=== PATIENT | female | born 1930 | race Caucasian/White ===

== ENCOUNTER 2016-12-09 11:28 | Inpatient (IN) | payer MEDICARE, BC ==
--- NOTE | ~2016-12-09 | DS ---
Discharge Summary [facility] [address] [place]. [address] NAME: BARBI PLASENCIA : [birth year] STATUS : DIS IN PAT#: [id number] AGE: 86 ADM/REG DATE : 12/09/16 MR#: [id number] REPORT SERV DATE: 12/20/16 DICTATED BY: SHIVA PALMA DATE: 12/19/16 REPORT STATUS : Draft TRANSCRIBED BY: REGINA DATE: 12/19/16 ADMISSION DATE: 12/09/2016 DISCHARGE DATE: 12/19/2016 CONSULTATIONS: 1. Cardiology, Phil Chou M.D. 2. Infectious Disease, Wilmer Triana M.D. 3. Nephrology, Dr. Rosario. INVASIVE PROCEDURE: None. DISCHARGE DIAGNOSES: 1. Severe sepsis, blood culture positive for Escherichia coli and Enterococcus faecalis. 2. Urinary tract infection. Urine culture positive for Escherichia coli, barber-sensitive. 3. Acute cholecystitis. 4. Acute kidney injury on chronic kidney disease. 5. History of coronary artery disease, status post AICD. 6. History of ischemic cardiomyopathy. 7. History of squamous cell carcinoma. 8. Fixed drug eruption likely due to Zosyn and vancomycin. 9. History of left ventricular thrombus, on chronic anticoagulation with warfarin. 10.History of degenerative joint disease, multiple sites, including bilateral knees and bilateral hips. 11.Elevated troponin secondary to demand ischemia. DISCHARGE CONDITION: Stable. HISTORY OF PRESENT ILLNESS: For detailed HPI, please make reference to Dr. Vanessa Shields's dictation on 12/10/2016. In brief, this is an 86-year-old female with medical history of coronary artery disease, ischemic cardiomyopathy, status post AICD placement, left ventricular thrombus, on chronic anticoagulation with warfarin, who presented to the emergency room with complaints of disorientation and confusion. In the ER, she was found to have a blood pressure in the low 60s and 40s. LABORATORY DATA: Significant for WBC of 23,000; lactic acid of 5.9; INR of 4.7; troponin elevated at 0.13; bilirubin elevated at 4.5. Chest x-ray showed decreased lung volume with mild central venous congestion. CT scan of the abdomen showed probable early evidence of cholecystitis. An assessment of septic shock secondary to urinary tract infection versus cholecystitis was made in the ER. The patient was started on aggressive IV fluid resuscitation. Broad-spectrum antibiotics with IV Zosyn, vancomycin, and Rocephin were initiated in the ER. General Surgery was consulted; however, given patient's poor prognosis and being deemed a nonsurgical candidate, General Surgery recommended conservative management of the acute cholecystitis. Initially, the patient's prognosis was very grim. Patient was made DNR/DNI by the family. The AICD was turned off. The patient's family requested the patient to be made comfort care, but to continue all treatments. The patient's AICD was turned off. The patient was continued on IV fluid resuscitation with Discharge Summary [place] [id number] [facility] [place]. [address] NAME: BARBI PLASENCIA : [birth year] STATUS : DIS IN PAT#: [id number] AGE: 86 ADM/REG DATE : 12/09/16 MR#: [id number] REPORT SERV DATE: 12/20/16 DICTATED BY: SHIVA PALMA DATE: 12/19/16 REPORT STATUS : Draft TRANSCRIBED BY: REGINA DATE: 12/19/16 broad-spectrum antibiotics. Based on dramatic improvement, the patient's WBC gradually trended down. The patient's blood pressure remained improved and remained stable with aggressive IV fluid resuscitation and broad-spectrum antibiotics. However, the patient's creatinine was noted to be significantly elevated. Nephrology was consulted, recommended to continue IV fluid resuscitation. The patient's creatinine gradually improved from 3.99. At the time of discharge, the patient's creatinine had returned back to baseline of 1.2. Also, during the course of this admission, the patient developed a significant reaction to vancomycin and Zosyn. The patient was noted to have multiple blisters in the upper extremities and lower extremities as well as blisters in the oral mucosa and tongue. This was thought to be likely due to vanc and Zosyn. Vanc and Zosyn were discontinued. Infectious Disease was consulted, recommended to switch to Zyvox, metronidazole, and levofloxacin based on the culture and sensitivity of the blood cultures and urine cultures. The patient was advised to continue p.o. antibiotics at the time of discharge. The patient was evaluated by Physical Therapy who recommended the patient to be transferred to SNF. The patient's AICD was turned back on based on dramatic improvement in overall patient's prognosis. The patient was advised to complete a total of three days of Zyvox, levofloxacin, and metronidazole. The patient's cardiac medications will recommence, which include warfarin, Coreg, and atorvastatin. The patient's losartan was discontinued. The patient was advised to follow up with primary care physician as well as Cardiology as an outpatient. DISCHARGE DISPOSITION: SNF. DISCHARGE ACTIVITIES: As tolerated. DISCHARGE DIET: Low-salt diet. Greater than 35 minutes were used to prepare this patient's discharge, reconcile medication, advise the patient on discharge plans and followup. IOO/MODL Shiva Palma MD / [id number] CC: MD Antelmo Nash M.D.
--- NOTE | ~2016-12-09 | HP ---
History And Physical [address] [address] [place]. [address] NAME: BARBI KING : [birth year] STATUS : ADM Don PAT#: [id number] AGE: 86 ADM/REG DATE : 12/09/16 MR#: [id number] REPORT SERV DATE: 12/10/16 DICTATED BY: ARUN CAZARES DATE: 12/09/16 REPORT STATUS : Draft TRANSCRIBED BY: MODHelio DATE: 12/09/16 DATE OF ADMISSION: 12/09/2016 HISTORY OF PRESENT ILLNESS: Ms. King is an 86-year-old female patient who was brought in by family to the emergency room this morning. The patient's son who lives right next to her found that she was very disoriented, extremely confused, and was just lying there in bed this morning with fecal matter all around her. The patient's son states that he has never seen his mom like this. When he saw her two days ago, she had complained of very diminished appetite and just generalized ill feeling, but other than that, he had not found her this confused. Other than this history, I am unable to obtain any other history from the patient herself because the patient is extremely lethargic and comatose at this time. All four children are available at bedside and all four of them live here in [place], [place], and one of the sons lives right next door to her. The patient has been living independently so far. According to the son who lives next to her, the patient was in her usual state of health all the way until Monday. After that, the only thing she told him was that her appetite was really-really low and she did not feel like eating much. She also complained of some abdominal discomfort. Other than that, the son is not aware of any other complaints that his mother mentioned to him. He states that when he saw her this morning she was very confused and was found covered in stool as mentioned above. Other than that, the son is not aware of any other history or at least is not giving me any other history. PAST MEDICAL HISTORY: Significant for: 1. Coronary artery disease. 2. History of congestive heart failure. 3. History of AICD placement. 4. History of cardiac arrhythmia for which the patient takes Coumadin on a regular basis. 5. Most of the other history was just obtained from the charts and [employer] [facility]. At this time, the patient is completely comatose and has been given Ativan and morphine and is not able to give any history at all. SOCIAL HISTORY: The patient does not smoke or drink or do any drugs. She has four children and she is used to living independently and she lives by herself in her own house and she used to take care of herself. FAMILY HISTORY: Noncontributory to the current problem. ALLERGIES: INCLUDE ALLERGY TO SULFA AND CELECOXIB. MEDICATIONS: Her home medications include Jantoven 4 mg once a day, potassium chloride 10 mEq once a day, Lipitor 40 mg once a day, Lopressor 25 mg p.o. b.i.d., aspirin 81 mg once a day, Imdur 30 mg p.o. b.i.d., Prilosec 20 mg once a day, and Cozaar 100 mg once a day. PAST SURGICAL HISTORY: The patient has had varicose veins in the legs and vein stripping in the legs. 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 History And Physical [address] [address] NAME: BARBI KING : [birth year] STATUS : ADM Don PAT#: [id number] AGE: 86 ADM/REG DATE : 12/09/16 MR#: [id number] REPORT SERV DATE: 12/10/16 DICTATED BY: ARUN CAZARES DATE: 12/09/16 REPORT STATUS : Draft TRANSCRIBED BY: REGINA DATE: 12/09/16 As mentioned above, the patient also has an implantable AICD/defibrillator in place. PHYSICAL EXAMINATION: GENERAL: On examination, the patient is lethargic, comatosed. VITAL SIGNS: Her vital signs show a blood pressure in the 60s to 40s. The patient's code status is a DNR. Her oxygen saturation is 100% on 2 liters of oxygen per nasal cannula and pulse is anywhere from 110 to 120 per minute. The patient is afebrile. Skin and mucous membranes appear slightly dry. HEENT: There is no facial droop. There is a scar and actually a suture on the nose from recent excision of squamous cell carcinoma of the nose. CARDIOVASCULAR SYSTEM: S1 and S2 appreciated. Sinus rhythm. Tachycardia noted. AICD in place. LUNGS: Clear. I could not appreciate any rales or rhonchi. The patient's breathing is not labored at this time. ABDOMEN: Soft. When I pushed gently on the abdomen, the patient slightly winces suggesting that there may be some abdominal pain/discomfort at this time. Bowel sounds are sluggish. I could not appreciate any organomegaly or masses with superficial exam of the abdomen. EXTREMITIES: There is no pedal edema. Pedal pulses are barely felt. NEUROLOGIC: The patient is comatosed. LABORATORY DATA: The most recent clinical results I have on this patient include a CBC that shows a WBC count of 23.5, hemoglobin 13.5, hematocrit 41.2, and platelet count of 158. Her INR at this time is calculated at 4.7. Her lactic acid is extremely elevated at 5.9. Her comprehensive metabolic profile shows sodium of 133, potassium of 3.4, and glucose of 69. Her ABG shows a pH of 7.3, pCO2 of 26, PO2 of 90 with O2 sats of 96% with supplemental oxygen. Her troponin I is slightly elevated at 0.13. Her alkaline phosphatase is extremely elevated and so are her AST and ALT which are noted. Her bilirubin is also elevated at 4.5. Her influenza screen is negative for both A and B. Her urinalysis is positive for infection with cloudy appearance, moderate bilirubin, moderate amount of blood and 27 wbc's. Her chest x-ray shows decreased lung volumes with mild central venous congestion and AICD in place. Her BNP is slightly elevated at 400.4. History And Physical [address] [address] NAME: BARBI KING : [birth year] STATUS : ADM Don PAT#: [id number] AGE: 86 ADM/REG DATE : 12/09/16 MR#: [id number] REPORT SERV DATE: 12/10/16 DICTATED BY: ARUN CAZARES DATE: 12/09/16 REPORT STATUS : Draft TRANSCRIBED BY: REGINA DATE: 12/09/16 CT scan of the abdomen and pelvis shows probable early cholecystitis. ASSESSMENT: 1. Septic shock. Source of sepsis is most likely gallbladder, could be urinary tract infection too, but a gallbladder infection is more likely in this patient. 2. Acute encephalopathy/comatosed secondary to septic shock and also probably an effect of the Ativan and the morphine that she has received in the ER. Apparently in the ER, the patient has received IV Zosyn and IV vancomycin and Rocephin. The patient has also been given fluids in the ER. However ER physician, Dr. Goodrich, verbally communicated with me that she had discussed with family and the patient's family definitely wanted to respect her wishes and make her code status a DO NOT RESUSCITATE and family was specifically requesting only comfort measures. Hence, I will only start this patient on intravenous half-normal saline at 125 mL an hour to raise her blood pressure a bit, at the same time, volume overload should be avoided in this patient with known history of congestive heart failure. We will keep the patient on IV Levaquin 750 mg IV daily and keep her on Ativan 1 to 2 mg q.2 to 4 hours p.r.n. for agitation and morphine 2 to 4 mg q.2 to 4 hours IV p.r.n. also. Code status is a DO NOT RESUSCITATE. Family has been updated and again multiple discussions and lengthy discussions with family confirms that the patient is definitely here for comfort measures only and family absolutely request that, and we will respect their wishes at this time. RRA/MODL Arun Cazares M.D. / [id number] CC: Jose Antonio Atkins M.D.
--- NOTE | ~2016-12-09 | CN ---
Consultation Report [facility] [address] [place]. [address] NAME: BARBI KING : [birth year] STATUS : ADM IN PAT#: [id number] AGE: 86 ADM/REG DATE : 12/09/16 MR#: [id number] REPORT SERV DATE: 12/11/16 DICTATED BY: PHIL ONOFRE DATE: 12/11/16 REPORT STATUS : Draft TRANSCRIBED BY: MODL DATE: 12/11/16 NEPHROLOGY CONSULT DATE OF CONSULTATION: HISTORY OF PRESENT ILLNESS: Ms. King is an 86-year-old white female, presents to the hospital with weakness, found by the family in her own bed covered with stool, and subsequently determined that she had sepsis, probably gallbladder related. She also had a urinary tract infection. She is currently on vancomycin and Zosyn. Resting comfortably in bed, and due to her age, and severe ischemic cardiomyopathy, with decreased ejection fraction, arrhythmias, and AICD placement, she has requested do not resuscitate status and family has agreed. She has had some squamous cell carcinoma that was resected in the past as well as varicose vein surgeries. SOCIAL HISTORY: No tobacco. No alcohol. Lives alone near family. She is a [employer] and professes to know where she will wake up when she dies. FAMILY HISTORY: Noncontributory. HOME MEDICATIONS: She was on aspirin, atorvastatin, isosorbide, Losartan, metoprolol, omeprazole, potassium, and warfarin. ALLERGIES: SHE IS ALLERGIC TO SULFA MEDICATIONS AND CELECOXIB. REVIEW OF SYSTEMS: She is a DNR, has been so for some time. Intake and output in last 24 hours were 4000 in and 750 out. Only complaint is that of knee pain when she moves her legs. PHYSICAL EXAMINATION: VITAL SIGNS: Blood pressure 96/44, heart rate 88, respirations 20, temperature 97.7. GENERAL: Awakens easily. She is oriented. In no acute distress. Denies pain except when she moves her legs. No shortness of breath. LUNGS: Clear. CARDIOVASCULAR: Without murmur, gallops, or rubs. ABDOMEN: Soft and benign. Bowel sounds are present. Tender to deep palpation. EXTREMITIES: No edema to speak of. Multiple bruises. NEUROLOGIC: Nonfocal, oriented, and conversive. Recognizes her family by name. No lymphadenopathy and no skin rash per se. LABORATORY DATA: Shows sodium 131, potassium 3.8, chloride 99, CO2 of 16, with a BUN of 62, creatinine 3.9, blood sugar 66, alkaline phos of 1138, SGOT of 101, SGPT of 105, creatinine 0.9 in early October, by 12/09/2016 admission date it was 2.88, 3.7 yesterday, 3.99 today. Lactate level is elevated at 5.9, white count 29,000, hemoglobin 12, hematocrit 37, platelet count 116,000. INR was 4.[address] showed cholecystitis. Chest x-ray showed no acute findings. Consultation Report [address] [place]. [address] NAME: BARBI KING : [birth year] STATUS : ADM IN [facility]#: [id number] AGE: 86 ADM/REG DATE : 12/09/16 MR#: [id number] REPORT SERV DATE: 12/11/16 DICTATED BY: PHIL ONOFRE DATE: 12/11/16 REPORT STATUS : Draft TRANSCRIBED BY: REGINA DATE: 12/11/16 ASSESSMENT: 1. Sepsis, probably gallbladder related, but cannot rule out urinary tract infection. Urine is growing out Escherichia coli sensitive to Zosyn. Gallbladder not cultured. Blood cultures x2 are positive for gram positive cocci and gram negative rods, but neither one of the sensitivities available yet or identification. We would continue Vanco and Zosyn for now. 2. Acute kidney injury, secondary #1 in the presence of Michael receptor sherry at home. Certainly not a hemodialysis candidate. 3. Metabolic acidosis, secondary to sepsis. 4. Ischemic cardiomyopathy with AICD in place. After discussing her code status with her family and with her, we decided to turn off the AICD, and will do so tonight instead of waiting until after it shocks her. 5. Elevated INR, with her history of GI bleeding in the past. We will continue proton pump inhibitors to prevent any GI bleeding, as I believe that would be a discomfort for her and reverse the INR. PLAN: DNR, IV Protonix, vitamin K, and turn off the AICD. NAIMA/REGINA Phil Onofre M.D. / [id number] CC: Jose Antonio Atkins M.D.
--- NOTE | ~2016-12-09 | CN ---
Consultation Report [facility] [address] [place]. [address] NAME: BARBI PLASENCIA : [birth year] STATUS : ADM IN PAT#: [id number] AGE: 86 ADM/REG DATE : 12/09/16 MR#: [id number] REPORT SERV DATE: 12/16/16 DICTATED BY: GEORGE RANDLE DATE: 12/15/16 REPORT STATUS : Draft TRANSCRIBED BY: MODL DATE: 12/15/16 INFECTIOUS DISEASE CONSULT DATE OF CONSULTATION: REASON FOR REFERRAL: Evaluation and treatment of septic patient for cholecystitis in the patient with drug hypersensitivity reaction, antibiotics in all likelihood. HISTORY OF PRESENT ILLNESS: The patient is an 86-year-old female with history coronary artery disease, congestive heart failure, and she has cardiac arrhythmias, has an AICD, is on Coumadin. She was found by her family on 12/09/2016, confused, lying and surrounded by feces. She came in and was found to be septic in the emergency room and a workup ensued, and she was found to have cholecystitis as the likely source with an inflamed-appearing gallbladder stones on CT scan. She grew some E. coli from her urine, but urinalysis was not very impressive and that was very unlikely to be playing any role in this and probably just reflects colonization. She was started empirically on vancomycin and Zosyn, and subsequent her blood cultures returned positive, two of two for E. coli and Enterococcus. She began to improve on those antibiotics. She had no fever. White blood cell count began to decrease. Her mental status improved, close to baseline, but then in the last two days, she has developed erythema on hands and feet. This began to spread, some to her trunk . She has also developed a severe mouth soreness and mucositis and still she is suffering a drug reaction, hypersensitivity reaction likely to her antibiotics, so they have both been stopped earlier today. She had previously been known to have a reaction to sulfa, but no other known antimicrobial sensitivities. She is complaining of mild itching, somewhat pain has resolved, and she has been able to eat without difficulty, though she is still anorexic. PAST MEDICAL HISTORY: Otherwise unremarkable. MEDICATIONS: As above. ALLERGIES: ABOVE. SOCIAL HISTORY: She lives alone, independently, , has family close by to help her. She is a nonsmoker. No history of alcohol or substance abuse. FAMILY HISTORY: Noncontributory. PHYSICAL EXAMINATION: GENERAL: Chronically ill-appearing, elderly, female, awake and alert. VITAL SIGNS: Her temperature at present is 97.3, pulse 100, respirations 18, blood pressure 126/61, weight 72 kg. HEENT: Sclerae clear. Mouth is erythematous with the blisters covering her tongue and a few on her cheeks as well. She has a sunburn-like rash on arms, legs and a V-like pattern on her upper chest. She has a scar on her nose or incision with the joy from a recent removal of a basal cell, but no signs of infection there. Consultation Report [place] [id number] [facility] [place]. [address] NAME: BARBI PLASENCIA : [birth year] STATUS : ADM IN [facility]#: [id number] AGE: 86 ADM/REG DATE : 12/09/16 MR#: [id number] REPORT SERV DATE: 12/16/16 DICTATED BY: GEORGE RANDLE DATE: 12/15/16 REPORT STATUS : Draft TRANSCRIBED BY: REGNIA DATE: 12/15/16 LUNGS: Crackles in bases otherwise, clear. HEART: Regular rate and rhythm. ABDOMEN: Mildly distended, nontender. Positive bowel sounds. EXTREMITIES: With the rash, but otherwise unremarkable. LABORATORY DATA: White count 23.5 when she came and it kiko to 29.5, it is gradually decreased since then, 13.3 today with hematocrit 40.3, platelets 127, 76 segs, 1 band. Cultures as previously mentioned. IMPRESSION: 1. Sepsis due to cholecystitis with Escherichia coli and Enterococcus in her blood and that is all improved with appropriate antibiotics. 2. Likely drug hypersensitivity reaction. At this point, it is impossible to say whether it was the Zosyn or vancomycin. RECOMMENDATIONS: 1. I feel she still needs to be treated for the cholecystitis and sepsis. So, would change the Zyvox, Levaquin, Flagyl, use different antibiotic classes and avoid related antibiotics, which she might have had a reaction to. 2. MD Randle mouthwash for her mouth. 3. Follow the patient with you. I appreciate very much your consulting on this patient. MONTEZ/REGINA George Randle M.D. / [id number] CC: MD Antelmo Nash M.D.
[~2016-12-09 11:28] MED LIST: ASA5GR PO; ASAB PO; ASABAYER PO; C25 PO; C5 PO; CEFT2 PO; COZAAR100 MG PO; HALF81 PO; IMDUR30 PO; IMDUR60 PO; JANTOVEN1 MG PO; K-TABS10 MEQ PO; L20 PO; LIDOCAINE 3% CREAM TOP; LIPITOR10 PO; LIPITOR40 PO; LOP25 PO; LOVENOX80 SC; NORCO1 TA1 PO; PRILO PO; ULTRAM50 PO
[2016-12-09] MEDS ORDERED: JANTOVEN4 MG PO (12:09)
[2016-12-09] MEDS ORDERED: KLOR-CON 1010 MEQ PO (12:09)
[2016-12-09] MEDS ORDERED: LIPITOR40 PO (12:09)
[2016-12-09 12:10] LABS: BASOPHILS 0.1 %; BASOPHILS ABSOLUTE 0.03 10/3/uL (0.0-0.16); EOSINOPHILS 0 %; ER CBC TAT 0 Hrs 11 Mins; HEMATOCRIT 41.2 % (36.0-48.0); HEMOGLOBIN 13.5 g/dL (12.0-16.0); IMMATURE GRANULOCYTES 15.6 %; IMMATURE GRANULOCYTES ABSOLUTE 3.66 10/3/uL (0.0-0.11); LYMPHOCYTES 2.6 %; LYMPHOCYTES ABSOLUTE 0.61 10/3/uL (0.67-4.30); MANUAL DIFF NO %; MEAN CORPUS HGB CONC 32.8 g/dL (32.0-36.0); MEAN CORPUSCULAR HEMOGLOB 25.7 pg (26.0-34.0); MEAN CORPUSCULAR VOLUME 78.3 fL (80-100); MONOCYTES 5.7 %; MONOCYTES ABSOLUTE 1.33 10/3/uL (0.21-1.20); NEUTROPHILS ABSOLUTE 17.88 10/3/uL (2.02-8.40); PLATELET COUNT 158 10/3/uL (150-400); RBC DISTRIBUTION WIDTH 22.2 % (12.0-16.0); RED CELL COUNT 5.26 10/6/uL (4.0-5.6); WHITE BLOOD CELLS 23.5 10/3/uL (4.5-10.5)
[2016-12-09] MEDS ORDERED: PRILO PO (12:10)
[2016-12-09] MEDS ORDERED: COZAAR100 MG PO (12:10)
[2016-12-09] MEDS ORDERED: IMDUR30 PO (12:10)
[2016-12-09] MEDS ORDERED: HALF81 PO (12:10)
[2016-12-09] MEDS ORDERED: LOP25 PO (12:10)
[2016-12-09 12:25] LABS: LACTATE 5.9 MMOL/L (0.3-2.4)
[2016-12-09 12:31] LABS: ANISOCYTOSIS 1+ (5-10/OIF) (0-5/OIF); BAND NEUTROPHILS 28 %; ER DIFF TAT 0 Hrs 32 Mins; LYMPHOCYTES 2 %; LYMPHOCYTES ABSOLUTE (CALC) 0.47 10/3/uL (0.67-4.30); MONOCYTES 2 %; MONOCYTES ABSOLUTE (CALC) 0.47 10/3/uL (0.21-1.20); NEUTROPHILS ABSOLUTE (CALC) 22.56 10/3/uL (2.02-8.40); PLATELET ESTIMATE ADQ (ADEQUATE); SEGMENTED NEUTROPHIL (0) 68 %; TOTAL NUCLEATED CELLS 100; TOXIC GRANULATION 1+
[2016-12-09 12:32] LABS: VACUOLATED NEUTROPHILES FEW
[2016-12-09 12:34] LABS: CALCIUM, SERUM 8.1 MG/DL (8.5-10.4); CHLORIDE, SERUM 103 MMOL/L (96-112); GLUCOSE, SERUM 67 MG/DL (60-99); SGOT(AST) 101 U/L (5-40); SGPT(ALT) 105 U/L (5-65); TOTAL PROTEIN 6.1 G/DL (6.0-8.5)
[2016-12-09 12:38] LABS: A/G RATIO 0.6 (0.7-1.9); ALBUMIN 2.3 G/DL (3.5-5.0); ALKALINE PHOSPHATASE 1138 U/L (45-117); BUN (BLOOD UREA NITROGEN) 52 MG/DL (6-23); CO2 (CARBON DIOXIDE) 14 MMOL/L (24-34); CREATININE 2.88 MG/DL (0.55-1.02); GFR AFRICAN AMERICAN 16 ML/MIN (>=60); GFR NON AFRICAN AMERICAN 14 ML/MIN (>=60); GLOBULIN 3.8 G/DL (2.5-4.1); POTASSIUM, SERUM 3.1 MMOL/L (3.5-5.3); SODIUM, SERUM 137 MMOL/L (135-148); TOTAL BILIRUBIN 4.5 MG/DL (0-1.2)
[2016-12-09 12:49] LABS: INTERNATIONAL NORMAL RATI 4.7 UNITS (-); PARTIAL THROMBO TIME 56.6 SEC (22.5-37.2)
[2016-12-09 12:53] LABS: PROTIME (NOT ORD) 44.2 SEC (12.0-14.5)
[2016-12-09 12:56] LABS: TROPONIN I 0.13 NG/ML (<0.05)
[2016-12-09 13:02] LABS: INFLUENZA A SCREEN NEGATIVE (NEGATIVE); INFLUENZA B SCREEN NEGATIVE (NEGATIVE)
[2016-12-09 13:03] LABS: ASCORBIC ACID (UR NOT ORDER) NEG (NEG); BILIRUBIN, URINE MODERATE (NEG); ER URINALYSIS TAT 0 Hrs 23 Mins; KETONE, URINE NEGATIVE (NEG); LEUKOCYTE ESTERASE(NOT OR NEG (NEG); NITRITE (URINE) NEG (NEG); WBC (NOT ORDERED) (RFLEX) 27 (0-5)
[2016-12-10 17:47] LABS: CALCIUM, SERUM 7.7 MG/DL (8.5-10.4); CHLORIDE, SERUM 99 MMOL/L (96-112); SODIUM, SERUM 132 MMOL/L (135-148)
[2016-12-10 17:48] LABS: BUN (BLOOD UREA NITROGEN) 59 MG/DL (6-23); CO2 (CARBON DIOXIDE) 15 MMOL/L (24-34); CREATININE 3.72 MG/DL (0.55-1.02); GFR AFRICAN AMERICAN 12 ML/MIN (>=60); GFR NON AFRICAN AMERICAN 10 ML/MIN (>=60); GLUCOSE, SERUM 29 MG/DL (60-99); POTASSIUM, SERUM 4.5 MMOL/L (3.5-5.3)
[2016-12-11 07:15] LABS: BUN (BLOOD UREA NITROGEN) 62 MG/DL (6-23); CALCIUM, SERUM 7.1 MG/DL (8.5-10.4); CHLORIDE, SERUM 99 MMOL/L (96-112); CO2 (CARBON DIOXIDE) 16 MMOL/L (24-34); CREATININE 3.99 MG/DL (0.55-1.02); GFR AFRICAN AMERICAN 11 ML/MIN (>=60); GFR NON AFRICAN AMERICAN 9 ML/MIN (>=60); POTASSIUM, SERUM 3.8 MMOL/L (3.5-5.3); SODIUM, SERUM 131 MMOL/L (135-148)
[2016-12-11 07:19] LABS: GLUCOSE, SERUM 66 MG/DL (60-99)
[2016-12-11 07:36] LABS: HEMOGLOBIN 12.3 g/dL (12.0-16.0); MEAN CORPUS HGB CONC 33.2 g/dL (32.0-36.0); MEAN CORPUSCULAR HEMOGLOB 25.3 pg (26.0-34.0); PLATELET COUNT 116 10/3/uL (150-400); RBC DISTRIBUTION WIDTH 22.7 % (12.0-16.0); RED CELL COUNT 4.87 10/6/uL (4.0-5.6)
[2016-12-11 07:43] LABS: MANUAL DIFF YES %; WHITE BLOOD CELLS 29.5 10/3/uL (4.5-10.5)
[2016-12-11 08:15] LABS: BAND NEUTROPHILS 10 %; LYMPHOCYTES 10 %; LYMPHOCYTES ABSOLUTE (CALC) 2.95 10/3/uL (0.67-4.30); MONOCYTES 4 %; MONOCYTES ABSOLUTE (CALC) 1.18 10/3/uL (0.21-1.20); NEUTROPHILS ABSOLUTE (CALC) 25.37 10/3/uL (2.02-8.40); SEGMENTED NEUTROPHIL (0) 76 %; TOTAL NUCLEATED CELLS 100
[2016-12-11 08:16] LABS: ANISOCYTOSIS 1+ (5-10/OIF) (0-5/OIF); PLATELET ESTIMATE ADQ (ADEQUATE)
[2016-12-12 05:52] LABS: CALCIUM, SERUM 7.1 MG/DL (8.5-10.4); CHLORIDE, SERUM 97 MMOL/L (96-112); CO2 (CARBON DIOXIDE) 19 MMOL/L (24-34); CREATININE 3.91 MG/DL (0.55-1.02); GFR AFRICAN AMERICAN 11 ML/MIN (>=60); GFR NON AFRICAN AMERICAN 10 ML/MIN (>=60); GLUCOSE, SERUM 60 MG/DL (60-99); POTASSIUM, SERUM 3.8 MMOL/L (3.5-5.3); SODIUM, SERUM 132 MMOL/L (135-148)
[2016-12-12 05:54] LABS: BUN (BLOOD UREA NITROGEN) 71 MG/DL (6-23)
[2016-12-12 06:33] LABS: HEMOGLOBIN 12.9 g/dL (12.0-16.0); MEAN CORPUS HGB CONC 33.9 g/dL (32.0-36.0); MEAN CORPUSCULAR HEMOGLOB 25.3 pg (26.0-34.0); MEAN CORPUSCULAR VOLUME 74.5 fL (80-100); PLATELET COUNT 99 10/3/uL (150-400); RBC DISTRIBUTION WIDTH 22.6 % (12.0-16.0); WHITE BLOOD CELLS 18.3 10/3/uL (4.5-10.5)
[2016-12-12 06:36] LABS: MANUAL DIFF YES %
[2016-12-12 07:16] LABS: BURR CELLS 1+ (3-10/OIF) (0-2/OIF); MICROCYTES 1+ (5-10/OIF) (0-5/OIF); PLATELET ESTIMATE DEC (ADEQUATE)
[2016-12-13 05:50] LABS: CALCIUM, SERUM 7.5 MG/DL (8.5-10.4); CHLORIDE, SERUM 99 MMOL/L (96-112); CO2 (CARBON DIOXIDE) 21 MMOL/L (24-34); CREATININE 3.47 MG/DL (0.55-1.02); GFR AFRICAN AMERICAN 13 ML/MIN (>=60); GFR NON AFRICAN AMERICAN 11 ML/MIN (>=60); POTASSIUM, SERUM 3.5 MMOL/L (3.5-5.3); SODIUM, SERUM 134 MMOL/L (135-148)
[2016-12-13 05:53] LABS: BUN (BLOOD UREA NITROGEN) 66 MG/DL (6-23); GLUCOSE, SERUM 88 MG/DL (60-99)
[2016-12-13 05:57] LABS: HEMATOCRIT 39.1 % (36.0-48.0); HEMOGLOBIN 13.4 g/dL (12.0-16.0); MANUAL DIFF YES %; MEAN CORPUS HGB CONC 34.3 g/dL (32.0-36.0); MEAN CORPUSCULAR HEMOGLOB 25.5 pg (26.0-34.0); MEAN CORPUSCULAR VOLUME 74.3 fL (80-100); PLATELET COUNT 90 10/3/uL (150-400); RBC DISTRIBUTION WIDTH 22.5 % (12.0-16.0); RED CELL COUNT 5.26 10/6/uL (4.0-5.6); WHITE BLOOD CELLS 16.5 10/3/uL (4.5-10.5)
[2016-12-13 06:24] LABS: BAND NEUTROPHILS 2 %; IMMATURE GRANS ABSOLUTE (CALC) 0.17 10/3/uL (0.0-0.11); LYMPHOCYTES 7 %; LYMPHOCYTES ABSOLUTE (CALC) 1.16 10/3/uL (0.67-4.30); METAMYELOCYTES 1 %; MONOCYTES 11 %; MONOCYTES ABSOLUTE (CALC) 1.82 10/3/uL (0.21-1.20); NEUTROPHILS ABSOLUTE (CALC) 13.37 10/3/uL (2.02-8.40); SEGMENTED NEUTROPHIL (0) 79 %; TOTAL NUCLEATED CELLS 100
[2016-12-13 06:25] LABS: PLATELET ESTIMATE DEC (ADEQUATE); TOXIC GRANULATION 1+; VACUOLATED NEUTROPHILES OCC
[2016-12-13 06:26] LABS: POIKILOCYTOSIS 1+ (5-10/OIF) (0-5/OIF); POLYCHROMASIA 1+ (2-5/OIF) (0-1/OIF)
[2016-12-13 06:27] LABS: BURR CELLS 1+ (3-10/OIF) (0-2/OIF); MICROCYTES 1+ (5-10/OIF) (0-5/OIF)
[2016-12-13 07:35] LABS: ALBUMIN 1.4 G/DL (3.5-5.0); PHOSPHORUS, SERUM 2.4 MG/DL (2.5-4.5)
[2016-12-14 05:13] LABS: HEMATOCRIT 35.8 % (36.0-48.0); HEMOGLOBIN 12.4 g/dL (12.0-16.0); MEAN CORPUS HGB CONC 34.6 g/dL (32.0-36.0); MEAN CORPUSCULAR HEMOGLOB 25.6 pg (26.0-34.0); PLATELET COUNT 84 10/3/uL (150-400); RBC DISTRIBUTION WIDTH 22.1 % (12.0-16.0); RED CELL COUNT 4.84 10/6/uL (4.0-5.6); WHITE BLOOD CELLS 12.9 10/3/uL (4.5-10.5)
[2016-12-14 05:15] LABS: MANUAL DIFF YES %
[2016-12-14 05:18] LABS: INTERNATIONAL NORMAL RATI 1.2 UNITS (-)
[2016-12-14 05:25] LABS: PROTIME (NOT ORD) 14.8 SEC (12.0-14.5)
[2016-12-14 05:33] LABS: ALBUMIN 1.4 G/DL (3.5-5.0); CALCIUM, SERUM 7.6 MG/DL (8.5-10.4); CHLORIDE, SERUM 97 MMOL/L (96-112); SGOT(AST) 29 U/L (5-40); SGPT(ALT) 40 U/L (5-65); SODIUM, SERUM 136 MMOL/L (135-148); TOTAL PROTEIN 5.1 G/DL (6.0-8.5)
[2016-12-14 05:34] LABS: BAND NEUTROPHILS 2 %; BASOPHILS 2 %; BASOPHILS ABSOLUTE (CALC) 0.26 10/3/uL (0.0-0.16); HYPOCHROMIA 1+ (3-10/OIF) (0-2/OIF); IMMATURE GRANS ABSOLUTE (CALC) 0.52 10/3/uL (0.0-0.11); LYMPHOCYTES 4 %; LYMPHOCYTES ABSOLUTE (CALC) 0.52 10/3/uL (0.67-4.30); METAMYELOCYTES 4 %; MICROCYTES 1+ (5-10/OIF) (0-5/OIF); MONOCYTES 16 %; MONOCYTES ABSOLUTE (CALC) 2.06 10/3/uL (0.21-1.20); NEUTROPHILS ABSOLUTE (CALC) 9.55 10/3/uL (2.02-8.40); PLATELET ESTIMATE DEC (ADEQUATE); SEGMENTED NEUTROPHIL (0) 72 %; TOTAL NUCLEATED CELLS 100
[2016-12-14 05:42] LABS: ALKALINE PHOSPHATASE 267 U/L (45-117); BUN (BLOOD UREA NITROGEN) 59 MG/DL (6-23); CO2 (CARBON DIOXIDE) 27 MMOL/L (24-34); CREATININE 2.64 MG/DL (0.55-1.02); DIRECT BILIRUBIN 1.4 MG/DL (0.0-0.4); GFR AFRICAN AMERICAN 18 ML/MIN (>=60); GFR NON AFRICAN AMERICAN 16 ML/MIN (>=60); GLUCOSE, SERUM 113 MG/DL (60-99); INDIRECT BILIRUBIN(NOT ORDER) 0.9 MG/DL (0.1-0.9); PHOSPHORUS, SERUM 3.4 MG/DL (2.5-4.5); TOTAL BILIRUBIN 2.3 MG/DL (0-1.2)
[2016-12-14 16:57] LABS: ALBUMIN 1.6 G/DL (3.5-5.0); BUN (BLOOD UREA NITROGEN) 54 MG/DL (6-23); CALCIUM, SERUM 7.9 MG/DL (8.5-10.4); CHLORIDE, SERUM 99 MMOL/L (96-112); CO2 (CARBON DIOXIDE) 28 MMOL/L (24-34); CREATININE 2.38 MG/DL (0.55-1.02); GFR AFRICAN AMERICAN 20 ML/MIN (>=60); GFR NON AFRICAN AMERICAN 18 ML/MIN (>=60); GLUCOSE, SERUM 165 MG/DL (60-99); HEMOGLOBIN 13.8 g/dL (12.0-16.0); MEAN CORPUS HGB CONC 33.6 g/dL (32.0-36.0); MEAN CORPUSCULAR HEMOGLOB 25.2 pg (26.0-34.0); PHOSPHORUS, SERUM 2.4 MG/DL (2.5-4.5); PLATELET COUNT 80 10/3/uL (150-400); POTASSIUM, SERUM 3.6 MMOL/L (3.5-5.3); RBC DISTRIBUTION WIDTH 22.4 % (12.0-16.0); RED CELL COUNT 5.48 10/6/uL (4.0-5.6); SODIUM, SERUM 138 MMOL/L (135-148); WHITE BLOOD CELLS 16.8 10/3/uL (4.5-10.5)
[2016-12-14 16:58] LABS: HEMATOCRIT 41.1 % (36.0-48.0); MANUAL DIFF YES %
[2016-12-14 17:34] LABS: BAND NEUTROPHILS 1 %; IMMATURE GRANS ABSOLUTE (CALC) 0.34 10/3/uL (0.0-0.11); LYMPHOCYTES 12 %; LYMPHOCYTES ABSOLUTE (CALC) 2.02 10/3/uL (0.67-4.30); METAMYELOCYTES 2 %; MONOCYTES 18 %; MONOCYTES ABSOLUTE (CALC) 3.02 10/3/uL (0.21-1.20); NEUTROPHILS ABSOLUTE (CALC) 11.42 10/3/uL (2.02-8.40); SEGMENTED NEUTROPHIL (0) 67 %; TOTAL NUCLEATED CELLS 100
[2016-12-14 17:35] LABS: BURR CELLS 1+ (3-10/OIF) (0-2/OIF); GIANT PLATELET FEW; OVALOCYTES 1+ (3-10/OIF) (0-2/OIF); PLATELET ESTIMATE DEC (ADEQUATE)
[2016-12-15 07:18] LABS: ALBUMIN 1.4 G/DL (3.5-5.0); BUN (BLOOD UREA NITROGEN) 52 MG/DL (6-23); CALCIUM, SERUM 7.9 MG/DL (8.5-10.4); CHLORIDE, SERUM 100 MMOL/L (96-112); CO2 (CARBON DIOXIDE) 25 MMOL/L (24-34); CREATININE 1.99 MG/DL (0.55-1.02); GFR AFRICAN AMERICAN 25 ML/MIN (>=60); GFR NON AFRICAN AMERICAN 22 ML/MIN (>=60); GLUCOSE, SERUM 102 MG/DL (60-99); PHOSPHORUS, SERUM 2.6 MG/DL (2.5-4.5); POTASSIUM, SERUM 3.5 MMOL/L (3.5-5.3); SODIUM, SERUM 139 MMOL/L (135-148)
[2016-12-15 11:14] LABS: HEMATOCRIT 40.3 % (36.0-48.0); HEMOGLOBIN 13.6 g/dL (12.0-16.0); MEAN CORPUS HGB CONC 33.7 g/dL (32.0-36.0); MEAN CORPUSCULAR HEMOGLOB 25.8 pg (26.0-34.0); MEAN CORPUSCULAR VOLUME 76.5 fL (80-100); RBC DISTRIBUTION WIDTH 22.5 % (12.0-16.0); RED CELL COUNT 5.27 10/6/uL (4.0-5.6); WHITE BLOOD CELLS 13.3 10/3/uL (4.5-10.5)
[2016-12-15 11:15] LABS: MANUAL DIFF YES %; PLATELET COUNT 127 10/3/uL (150-400)
[2016-12-15 11:32] LABS: BAND NEUTROPHILS 1 %; IMMATURE GRANS ABSOLUTE (CALC) 0.13 10/3/uL (0.0-0.11); LYMPHOCYTES 7 %; LYMPHOCYTES ABSOLUTE (CALC) 0.93 10/3/uL (0.67-4.30); METAMYELOCYTES 1 %; MONOCYTES 15 %; NEUTROPHILS ABSOLUTE (CALC) 10.24 10/3/uL (2.02-8.40); SEGMENTED NEUTROPHIL (0) 76 %; TOTAL NUCLEATED CELLS 100
[2016-12-15 11:33] LABS: GIANT PLATELET RARE; HYPOCHROMIA 1+ (3-10/OIF) (0-2/OIF); MICROCYTES 1+ (5-10/OIF) (0-5/OIF); PLATELET ESTIMATE SLT DEC (ADEQUATE)
[2016-12-16 05:57] LABS: ALBUMIN 1.5 G/DL (3.5-5.0); CALCIUM, SERUM 8.1 MG/DL (8.5-10.4); CHLORIDE, SERUM 104 MMOL/L (96-112); CO2 (CARBON DIOXIDE) 29 MMOL/L (24-34); CREATININE 1.83 MG/DL (0.55-1.02); GFR AFRICAN AMERICAN 28 ML/MIN (>=60); GFR NON AFRICAN AMERICAN 24 ML/MIN (>=60); PHOSPHORUS, SERUM 2.3 MG/DL (2.5-4.5); POTASSIUM, SERUM 3.5 MMOL/L (3.5-5.3); SODIUM, SERUM 141 MMOL/L (135-148)
[2016-12-16 06:00] LABS: BUN (BLOOD UREA NITROGEN) 43 MG/DL (6-23); GLUCOSE, SERUM 136 MG/DL (60-99)
[2016-12-16 06:25] LABS: HEMOGLOBIN 12.6 g/dL (12.0-16.0); MANUAL DIFF YES %; MEAN CORPUS HGB CONC 33.2 g/dL (32.0-36.0); MEAN CORPUSCULAR HEMOGLOB 25.3 pg (26.0-34.0); MEAN CORPUSCULAR VOLUME 76.3 fL (80-100); PLATELET COUNT 141 10/3/uL (150-400); RBC DISTRIBUTION WIDTH 22.5 % (12.0-16.0); RED CELL COUNT 4.98 10/6/uL (4.0-5.6); WHITE BLOOD CELLS 11.4 10/3/uL (4.5-10.5)
[2016-12-16 07:46] LABS: BAND NEUTROPHILS 4 %; EOSINOPHILS 2 %; EOSINOPHILS ABSOLUTE (CALC) 0.23 10/3/uL (0.0-0.53); IMMATURE GRANS ABSOLUTE (CALC) 0.11 10/3/uL (0.0-0.11); LYMPHOCYTES 16 %; LYMPHOCYTES ABSOLUTE (CALC) 1.82 10/3/uL (0.67-4.30); METAMYELOCYTES 1 %; MONOCYTES 20 %; MONOCYTES ABSOLUTE (CALC) 2.28 10/3/uL (0.21-1.20); NEUTROPHILS ABSOLUTE (CALC) 6.95 10/3/uL (2.02-8.40); PLATELET ESTIMATE SLT DEC (ADEQUATE); SEGMENTED NEUTROPHIL (0) 57 %; TOTAL NUCLEATED CELLS 100
[2016-12-16 17:39] LABS: BD FL LYMPH (NOT ORD) 4 %; BD FL SOURCE (NOT ORD) KNEE; BF BASO (NOT OF) 0 %; BF LARGE MONONUCLEAR 21 %; BODY FLUID EOS (NOT ORD) 0 %; BODY FLUID SEG (NOT ORD) 75 %
[2016-12-16 17:40] LABS: BF TOTAL CELL CT (NOT ORD 2904 /MM3
[2016-12-16 17:41] LABS: BODY FLUID RBC (NOT ORD) 2000 /MM3
[2016-12-17 06:30] LABS: HEMATOCRIT 36.3 % (36.0-48.0); HEMOGLOBIN 11.9 g/dL (12.0-16.0); MEAN CORPUS HGB CONC 32.8 g/dL (32.0-36.0); MEAN CORPUSCULAR HEMOGLOB 25.4 pg (26.0-34.0); MEAN CORPUSCULAR VOLUME 77.4 fL (80-100); PLATELET COUNT 150 10/3/uL (150-400); RBC DISTRIBUTION WIDTH 22.8 % (12.0-16.0); RED CELL COUNT 4.69 10/6/uL (4.0-5.6); WHITE BLOOD CELLS 10.7 10/3/uL (4.5-10.5)
[2016-12-17 06:33] LABS: MANUAL DIFF YES %
[2016-12-17 06:49] LABS: ALBUMIN 1.4 G/DL (3.5-5.0); CALCIUM, SERUM 8.4 MG/DL (8.5-10.4); CHLORIDE, SERUM 106 MMOL/L (96-112); CO2 (CARBON DIOXIDE) 28 MMOL/L (24-34); CREATININE 1.55 MG/DL (0.55-1.02); GFR AFRICAN AMERICAN 34 ML/MIN (>=60); GFR NON AFRICAN AMERICAN 30 ML/MIN (>=60); PHOSPHORUS, SERUM 2.9 MG/DL (2.5-4.5); POTASSIUM, SERUM 3.4 MMOL/L (3.5-5.3); SODIUM, SERUM 143 MMOL/L (135-148)
[2016-12-17 06:50] LABS: BUN (BLOOD UREA NITROGEN) 38 MG/DL (6-23); GLUCOSE, SERUM 91 MG/DL (60-99)
[2016-12-17 06:51] LABS: BAND NEUTROPHILS 1 %; EOSINOPHILS 1 %; EOSINOPHILS ABSOLUTE (CALC) 0.11 10/3/uL (0.0-0.53); IMMATURE GRANS ABSOLUTE (CALC) 0.43 10/3/uL (0.0-0.11); LYMPHOCYTES 15 %; LYMPHOCYTES ABSOLUTE (CALC) 1.61 10/3/uL (0.67-4.30); METAMYELOCYTES 4 %; MONOCYTES 7 %; MONOCYTES ABSOLUTE (CALC) 0.75 10/3/uL (0.21-1.20); NEUTROPHILS ABSOLUTE (CALC) 7.81 10/3/uL (2.02-8.40); SEGMENTED NEUTROPHIL (0) 72 %; TOTAL NUCLEATED CELLS 100
[2016-12-17 06:52] LABS: HYPOCHROMIA 1+ (3-10/OIF) (0-2/OIF); PLATELET ESTIMATE ADQ (ADEQUATE)
[2016-12-17 14:10] LABS: INTERNATIONAL NORMAL RATI 1.2 UNITS (-); PROTIME (NOT ORD) 15.4 SEC (12.0-14.5)
[2016-12-18 07:22] LABS: INTERNATIONAL NORMAL RATI 1.3 UNITS (-); PROTIME (NOT ORD) 16.1 SEC (12.0-14.5)
[2016-12-18 07:23] LABS: ALBUMIN 1.5 G/DL (3.5-5.0); CALCIUM, SERUM 8.3 MG/DL (8.5-10.4); CHLORIDE, SERUM 108 MMOL/L (96-112); CO2 (CARBON DIOXIDE) 26 MMOL/L (24-34); CREATININE 1.41 MG/DL (0.55-1.02); GFR AFRICAN AMERICAN 38 ML/MIN (>=60); GFR NON AFRICAN AMERICAN 33 ML/MIN (>=60); GLUCOSE, SERUM 88 MG/DL (60-99); PHOSPHORUS, SERUM 2.9 MG/DL (2.5-4.5); POTASSIUM, SERUM 3.7 MMOL/L (3.5-5.3); SODIUM, SERUM 142 MMOL/L (135-148)
[2016-12-18 07:24] LABS: BUN (BLOOD UREA NITROGEN) 31 MG/DL (6-23)
[2016-12-18 07:36] LABS: HEMATOCRIT 37.5 % (36.0-48.0); HEMOGLOBIN 12.3 g/dL (12.0-16.0); MEAN CORPUS HGB CONC 32.8 g/dL (32.0-36.0); MEAN CORPUSCULAR HEMOGLOB 25.6 pg (26.0-34.0); MEAN CORPUSCULAR VOLUME 78.1 fL (80-100); RBC DISTRIBUTION WIDTH 22.9 % (12.0-16.0); WHITE BLOOD CELLS 10.7 10/3/uL (4.5-10.5)
[2016-12-18 07:37] LABS: MANUAL DIFF YES %; PLATELET COUNT 198 10/3/uL (150-400)
[2016-12-18 08:34] LABS: BAND NEUTROPHILS 1 %; EOSINOPHILS 2 %; EOSINOPHILS ABSOLUTE (CALC) 0.21 10/3/uL (0.0-0.53); HELMET CELLS OCC (0-2/OIF); HYPOCHROMIA 1+ (3-10/OIF) (0-2/OIF); IMMATURE GRANS ABSOLUTE (CALC) 0.64 10/3/uL (0.0-0.11); LYMPHOCYTES 18 %; LYMPHOCYTES ABSOLUTE (CALC) 1.93 10/3/uL (0.67-4.30); METAMYELOCYTES 4 %; MICROCYTES 1+ (5-10/OIF) (0-5/OIF); MONOCYTES 16 %; MONOCYTES ABSOLUTE (CALC) 1.71 10/3/uL (0.21-1.20); MYELOCYTES 2 %; NEUTROPHILS ABSOLUTE (CALC) 6.21 10/3/uL (2.02-8.40); PLATELET ESTIMATE ADQ (ADEQUATE); POLYCHROMASIA 1+ (2-5/OIF) (0-1/OIF); SEGMENTED NEUTROPHIL (0) 57 %; TEARDROP SHAPED RBCS OCC (0-2/OIF); TOTAL NUCLEATED CELLS 100
[2016-12-18 08:35] LABS: TARGET CELLS OCC (1-2/OIF) (0-1/OIF); TOXIC GRANULATION SLT
[2016-12-18 08:36] LABS: VACUOLATED NEUTROPHILES OCC
[2016-12-19 06:18] LABS: INTERNATIONAL NORMAL RATI 1.3 UNITS (-); PROTIME (NOT ORD) 16.5 SEC (12.0-14.5)
[2016-12-19 09:22] LABS: BASOPHILS 0.7 %; BASOPHILS ABSOLUTE 0.08 10/3/uL (0.0-0.16); EOSINOPHILS 0.3 %; EOSINOPHILS ABSOLUTE 0.04 10/3/uL (0.0-0.53); HEMATOCRIT 35.2 % (36.0-48.0); HEMOGLOBIN 11.4 g/dL (12.0-16.0); IMMATURE GRANULOCYTES ABSOLUTE 0.46 10/3/uL (0.0-0.11); LYMPHOCYTES ABSOLUTE 2.06 10/3/uL (0.67-4.30); MEAN CORPUS HGB CONC 32.4 g/dL (32.0-36.0); MEAN CORPUSCULAR HEMOGLOB 25.6 pg (26.0-34.0); MEAN CORPUSCULAR VOLUME 78.9 fL (80-100); MEAN PLATELET VOLUME 11.3 fL (9.2-13.0); MONOCYTES 14.3 %; MONOCYTES ABSOLUTE 1.64 10/3/uL (0.21-1.20); NEUTROPHILS 62.7 %; NEUTROPHILS ABSOLUTE 7.15 10/3/uL (2.02-8.40); PLATELET COUNT 196 10/3/uL (150-400); RBC DISTRIBUTION WIDTH 23.4 % (12.0-16.0); RED CELL COUNT 4.46 10/6/uL (4.0-5.6); WHITE BLOOD CELLS 11.4 10/3/uL (4.5-10.5)
[2016-12-19 09:23] LABS: MANUAL DIFF NO %
[2016-12-19 09:27] LABS: ALBUMIN 1.6 G/DL (3.5-5.0); CALCIUM, SERUM 8.2 MG/DL (8.5-10.4); CHLORIDE, SERUM 107 MMOL/L (96-112); CO2 (CARBON DIOXIDE) 23 MMOL/L (24-34); CREATININE 1.22 MG/DL (0.55-1.02); GFR AFRICAN AMERICAN 46 ML/MIN (>=60); GFR NON AFRICAN AMERICAN 40 ML/MIN (>=60); PHOSPHORUS, SERUM 2.7 MG/DL (2.5-4.5); POTASSIUM, SERUM 3.7 MMOL/L (3.5-5.3); SODIUM, SERUM 142 MMOL/L (135-148)
[2016-12-19 09:28] LABS: BUN (BLOOD UREA NITROGEN) 27 MG/DL (6-23); GLUCOSE, SERUM 61 MG/DL (60-99)
[2016-12-19 09:56] LABS: BAND NEUTROPHILS 5 %; EOSINOPHILS 1 %; EOSINOPHILS ABSOLUTE (CALC) 0.11 10/3/uL (0.0-0.53); IMMATURE GRANS ABSOLUTE (CALC) 0.46 10/3/uL (0.0-0.11); LYMPHOCYTES 17 %; LYMPHOCYTES ABSOLUTE (CALC) 1.94 10/3/uL (0.67-4.30); MACROCYTES 1+ (5-10/OIF) (0-5/OIF); METAMYELOCYTES 3 %; MONOCYTES 14 %; MYELOCYTES 1 %; PLATELET ESTIMATE ADQ (ADEQUATE); SEGMENTED NEUTROPHIL (0) 59 %; TOTAL NUCLEATED CELLS 100
== END 2016-12-19 18:19 | DRG 871 ==
LOC: ER 11:28 → 6NO 15:18
PROVIDERS: Emergency Medicine; Hospitalist; Orthopaedic Surgery
DX: A41.51 Sepsis due to Escherichia coli [E. coli] (principal); R65.21 Severe sepsis with septic shock; N17.9 Acute kidney failure, unspecified; G92 Toxic encephalopathy; I24.8 Other forms of acute ischemic heart disease; E87.2 Acidosis; D69.6 Thrombocytopenia, unspecified; K81.0 Acute cholecystitis; N39.0 Urinary tract infection, site not specified; N18.9 Chronic kidney disease, unspecified; A41.81 Sepsis due to Enterococcus; I25.10 Atherosclerotic heart disease of native coronary artery without angina pectoris; I25.5 Ischemic cardiomyopathy; E86.0 Dehydration; I10 Essential (primary) hypertension; L27.0 Generalized skin eruption due to drugs and medicaments taken internally; K12.32 Oral mucositis (ulcerative) due to other drugs; T36.8X5A Adverse effect of other systemic antibiotics, initial encounter; T36.0X5A Adverse effect of penicillins, initial encounter; M16.0 Bilateral primary osteoarthritis of hip; M17.0 Bilateral primary osteoarthritis of knee; I51.3 Intracardiac thrombosis, not elsewhere classified; M25.461 Effusion, right knee; Z95.810 Presence of automatic (implantable) cardiac defibrillator; Z79.01 Long term (current) use of anticoagulants; Z66 Do not resuscitate; Z85.828 Personal history of other malignant neoplasm of skin; Z95.5 Presence of coronary angioplasty implant and graft; Z88.2 Allergy status to sulfonamides; Z79.82 Long term (current) use of aspirin; T42.4X5A Adverse effect of benzodiazepines, initial encounter; T40.2X5A Adverse effect of other opioids, initial encounter
CPT/HCPCS: 71010; 73560-50; 74176; 80048; 80053; 80069; 80076; 80202; 81001; 82330; 82803; 82947; 82962; 83605; 83735; 83880; 84132; 84295; 84484; 85014; 85025; 85610; 85730; 87040; 87070; 87077; 87086; 87186; 87205; 87804; 89051; 89060; 93005; 96365; 96368; 96375; 96376; 97110-GP; 97163-GP; 97165-GO; 97530-GP; 97535-GO; 99291; A9270-GY; C8929; C9113; G8978-CN-GP; G8979-CK-GP; G8980-CJ-GP; G8987-CK-GO; G8988-CJ-GO; J1940; J1956; J2543; J3370; J3430; Q9957